=== PATIENT | female | born 1950 | race Caucasian/White ===

== ENCOUNTER 2020-12-22 09:45 | Inpatient (IN) | payer MEDICARE, MEDICAID ==
[2020-12-22 10:23] LABS: #Monocytes 1.2 10x3/uL (0.0-1.1); #Neutrophils 6.7 10x3/uL (1.5-8.4); %Basophils 0.4 % (0.0-2.0); %Eosinophils 0.4 % (0.0-6.0); %Lymphocytes 15.1 % (18.0-47.0); %Monocytes 12.2 % (0.0-10.0); %Neutrophils 71.1 % (40.0-75.0); Hemoglobin 10.3 g/dL (12.0-15.5); Mean Corpuscular Hemoglobin 26.7 pg (27.0-33.0); Mean Corpuscular Volume 88.9 fl (81.6-98.3); Platelet Count 199 10x3/uL (150-450); Red Blood Cell (RBC) Count 3.86 10x6/uL (3.90-5.03); White Blood Cell (WBC) Count 9.4 10x3/uL (3.5-10.5)
[2020-12-22 10:38] LABS: ALT (SGPT) 142 U/L (8-55); AST (SGOT) 226 U/L (5-34); Albumin 3.3 g/dL (3.4-4.8); Alkaline Phosphatase 112 U/L (40-110); Anion Gap 19 mmol/L (10-20); BUN (Urea Nitrogen) 51 mg/dL (9.8-20.1); Bilirubin, Total 0.5 mg/dL (0.2-1.2); Calc. Creatinine Clearance 0 mL/min (70-130); Calcium 8.3 mg/dL (7.8-10.44); Carbon Dioxide 27 mmol/L (23-31); Chloride 104 mmol/L (98-107); Globulin 3.3 g/dL (2.4-3.5); Glucose 73 mg/dL (80-115); Potassium 5.4 mmol/L (3.5-5.1); Protein, Total 6.6 g/dL (5.8-8.1); Sodium 145 mmol/L (136-145)
[2020-12-22] MEDS ORDERED: Nitroglycerin 2% Ointment 1 INCH/1 GM Packet ONE (10:55)
[2020-12-22] MEDS ORDERED: Furosemide 40 MG/4 ML VIAL ONE (10:55)
[2020-12-22 11:18] LABS: CKMB 9.6 ng/mL (0-6.6)
[2020-12-22] MEDS ORDERED: Enoxaparin Sodium 100 MG/ML SYRINGE ONE (11:32)
[2020-12-22 13:13] LABS: SARS-CoV-2 NAA Rapid Test Not Detected (NotDetected)
[2020-12-22] MEDS ORDERED: Ondansetron PF 4 MG/2 ML Vial IVP PRN (14:08)
[2020-12-22] MEDS ORDERED: Ondansetron ODT 4 MG TAB PO PRN (14:08)
[2020-12-22] MEDS ORDERED: Nitroglycerin 0.4 MG TAB (25 Tab Bottle) SL PRN (14:08)
[2020-12-22] MEDS ORDERED: Clopidogrel Bisulfate 300 MG TAB PO SCH (14:15)
[2020-12-22] MEDS ORDERED: Dextrose 50% Abboject 50 ML SYRINGE SLOW IVP PRN (14:50)
[2020-12-22] MEDS ORDERED: Dextrose 5% in Water 1,000 ML IV PRN (14:50)
[2020-12-22] MEDS ORDERED: Labetalol HCl 100 MG/20 ML VIAL SLOW IVP PRN (14:51)
[2020-12-22] MEDS: Morphine 2 MG/ML VIAL SLOW IVP PRN (16:25)
[2020-12-22] MEDS: Carvedilol 25 MG TAB PO SCH (16:25)
[2020-12-22 16:45] LABS: Troponin I 4.855 ng/mL (< 0.028)
[2020-12-22] MEDS: traMADol HCl 50 MG TAB PO PRN (19:00)
[2020-12-22] MEDS: Mometasone/Formoterol 200/5 60 PUFF INH SCH (19:20)
[2020-12-22] MEDS: Rosuvastatin 20 MG TAB PO SCH (21:35)
[2020-12-22] MEDS: Nitroglycerin 2% Ointment 1 INCH/1 GM Packet TOP SCH (22:00)
[2020-12-23 06:26] LABS: Anion Gap 17 mmol/L (10-20); BUN (Urea Nitrogen) 56 mg/dL (9.8-20.1); Calc. Creatinine Clearance 0 mL/min (70-130); Calcium 8.2 mg/dL (7.8-10.44); Carbon Dioxide 27 mmol/L (23-31); Cardiac Risk 5.6 (Less than 4.5); Chloride 105 mmol/L (98-107); Cholesterol 179 mg/dl (< 200 Desired); Glucose 93 mg/dL (80-115); HDL Cholesterol 32 mg/dL (>60 Neg Risk); LDL Cholesterol, Calculated 119 mg/dL; Potassium 5.3 mmol/L (3.5-5.1); Sodium 144 mmol/L (136-145); Triglycerides 140 mg/dL (Less than 150)
[2020-12-23] MEDS: Nitroglycerin 2% Ointment 1 INCH/1 GM Packet TOP SCH ×3 (06:53→21:04)
[2020-12-23 06:56] LABS: Platelet Count 140 10x3/uL (150-450)
[2020-12-23 06:57] LABS: #Basophils 0.1 10x3/uL (0.0-0.2); #Eosinphils 0.2 10x3/uL (0.0-0.5); #Monocytes 0.9 10x3/uL (0.0-1.1); #Neutrophils 4.5 10x3/uL (1.5-8.4); %Basophils 0.7 % (0.0-2.0); %Eosinophils 2.9 % (0.0-6.0); %Lymphocytes 15.9 % (18.0-47.0); %Monocytes 12.9 % (0.0-10.0); %Neutrophils 66.6 % (40.0-75.0); Hemoglobin 9.3 g/dL (12.0-15.5); Mean Corpuscular HGB CONC 29.5 g/dL (32.0-36.0); Mean Corpuscular Hemoglobin 26.3 pg (27.0-33.0); Mean Corpuscular Volume 89.2 fl (81.6-98.3); RBC Distribution Width 17.9 % (11.5-14.5); Red Blood Cell (RBC) Count 3.53 10x6/uL (3.90-5.03); White Blood Cell (WBC) Count 6.8 10x3/uL (3.5-10.5)
[2020-12-23 07:41] LABS: Platelet Morphology Comment Appears Adequate; RBC Morphology Normal
[2020-12-23] MEDS: Mometasone/Formoterol 200/5 60 PUFF INH SCH ×2 (08:08→19:20)
[2020-12-23] MEDS: Furosemide 40 MG/4 ML VIAL SLOW IVP SCH (08:12)
[2020-12-23] MEDS: Aspirin 81 mg Enteric Coated Tablet PO SCH (08:12)
[2020-12-23] MEDS: Carvedilol 25 MG TAB PO SCH ×2 (08:12→18:00)
[2020-12-23] MEDS: Clopidogrel Bisulfate 75 MG TAB PO SCH (08:12)
[2020-12-23] MEDS: Morphine 2 MG/ML VIAL SLOW IVP PRN ×2 (08:13→12:00)
[2020-12-23] MEDS: Enoxaparin Sodium 30 MG/0.3 ML SYRINGE SC SCH (08:15)
[2020-12-23] MEDS ORDERED: Lisinopril 2.5 MG TAB PO SCH (09:00)
[2020-12-23 11:26] LABS: Hemoglobin A1c 7.5 % (4.0-6.0)
[2020-12-23 12:47] VITALS: BMI 40.2
[2020-12-23] MEDS: traMADol HCl 50 MG TAB PO PRN (12:47)
[2020-12-23] MEDS: Rosuvastatin 20 MG TAB PO SCH (21:04)
[2020-12-23] MEDS: HumaLOG 300 UNITS/3 ML VIAL SC PRN (22:01)
[2020-12-24] MEDS: traMADol HCl 50 MG TAB PO PRN ×3 (00:43→18:03)
[2020-12-24 05:12] LABS: #Basophils 0.1 10x3/uL (0.0-0.2); #Eosinphils 0.3 10x3/uL (0.0-0.5); #Monocytes 0.9 10x3/uL (0.0-1.1); #Neutrophils 3.8 10x3/uL (1.5-8.4); %Basophils 0.8 % (0.0-2.0); %Eosinophils 5.5 % (0.0-6.0); %Lymphocytes 15.4 % (18.0-47.0); %Neutrophils 62.6 % (40.0-75.0); Hemoglobin 9.6 g/dL (12.0-15.5); Mean Corpuscular Hemoglobin 26.5 pg (27.0-33.0); Mean Corpuscular Volume 91.4 fl (81.6-98.3); Mean Platelet Volume 13.2 fl (7.4-10.4); Platelet Count 158 10x3/uL (150-450); RBC Distribution Width 17.7 % (11.5-14.5); Red Blood Cell (RBC) Count 3.62 10x6/uL (3.90-5.03)
[2020-12-24 05:22] LABS: ALT (SGPT) 219 U/L (8-55); AST (SGOT) 182 U/L (5-34); Albumin 2.9 g/dL (3.4-4.8); Alkaline Phosphatase 94 U/L (40-110); Anion Gap 17 mmol/L (10-20); BUN (Urea Nitrogen) 61 mg/dL (9.8-20.1); Bilirubin, Total 0.3 mg/dL (0.2-1.2); Calc. Creatinine Clearance 21 mL/min (70-130); Calcium 8.2 mg/dL (7.8-10.44); Carbon Dioxide 29 mmol/L (23-31); Chloride 102 mmol/L (98-107); Globulin 3.5 g/dL (2.4-3.5); Glucose 115 mg/dL (80-115); Potassium 4.9 mmol/L (3.5-5.1); Protein, Total 6.4 g/dL (5.8-8.1); Sodium 143 mmol/L (136-145)
[2020-12-24 05:56] LABS: Platelet Morphology Comment Appears Adequate
[2020-12-24 05:57] LABS: Anisocytosis SLIGHT = 6-15 cells (100X) (0-5/hpf)
[2020-12-24] MEDS: Nitroglycerin 2% Ointment 1 INCH/1 GM Packet TOP SCH ×3 (06:12→21:06)
[2020-12-24] MEDS: Mometasone/Formoterol 200/5 60 PUFF INH SCH ×2 (06:43→19:22)
[2020-12-24] MEDS: Carvedilol 25 MG TAB PO SCH ×2 (08:21→17:30)
[2020-12-24] MEDS: Aspirin 81 mg Enteric Coated Tablet PO SCH (08:21)
[2020-12-24] MEDS: Furosemide 40 MG/4 ML VIAL SLOW IVP SCH (08:21)
[2020-12-24] MEDS: Clopidogrel Bisulfate 75 MG TAB PO SCH (08:21)
[2020-12-24] MEDS: Enoxaparin Sodium 30 MG/0.3 ML SYRINGE SC SCH (08:21)
[2020-12-24] MEDS: diphenhydrAMINE 25 MG CAP PO PRN ×2 (08:21→18:03)
[2020-12-24] MEDS: HumaLOG 300 UNITS/3 ML VIAL SC PRN (18:08)
[2020-12-24] MEDS: Acetaminophen 325 MG TAB PO PRN (19:29)
[2020-12-24] MEDS: Rosuvastatin 20 MG TAB PO SCH (19:29)
[2020-12-25] MEDS: traMADol HCl 50 MG TAB PO PRN ×3 (02:00→17:35)
[2020-12-25 05:32] LABS: Anion Gap 16 mmol/L (10-20); BUN (Urea Nitrogen) 68 mg/dL (9.8-20.1); Calc. Creatinine Clearance 19 mL/min (70-130); Calcium 8.1 mg/dL (7.8-10.44); Carbon Dioxide 29 mmol/L (23-31); Chloride 100 mmol/L (98-107); Glucose 201 mg/dL (80-115); Magnesium 2.3 mg/dL (1.6-2.6); Potassium 5.4 mmol/L (3.5-5.1); Sodium 140 mmol/L (136-145)
[2020-12-25 05:55] LABS: Hemoglobin 11.3 g/dL (12.0-15.5); Mean Corpuscular HGB CONC 28.9 g/dL (32.0-36.0); Mean Corpuscular Hemoglobin 26.5 pg (27.0-33.0); Mean Corpuscular Volume 91.8 fl (81.6-98.3); Mean Platelet Volume 12.9 fl (7.4-10.4); Platelet Count 121 10x3/uL (150-450); RBC Distribution Width 18.1 % (11.5-14.5); Red Blood Cell (RBC) Count 4.26 10x6/uL (3.90-5.03); White Blood Cell (WBC) Count 5.9 10x3/uL (3.5-10.5)
[2020-12-25] MEDS: Nitroglycerin 2% Ointment 1 INCH/1 GM Packet TOP SCH (06:21)
[2020-12-25] MEDS: Mometasone/Formoterol 200/5 60 PUFF INH SCH ×2 (06:49→19:30)
[2020-12-25 06:50] LABS: #Eosinphils 0.3 10x3/uL (0.0-0.5); #Monocytes 0.8 10x3/uL (0.0-1.1); #Neutrophils 3.9 10x3/uL (1.5-8.4); %Basophils 0.5 % (0.0-2.0); %Eosinophils 5.1 % (0.0-6.0); %Lymphocytes 14.3 % (18.0-47.0); %Monocytes 12.8 % (0.0-10.0); %Neutrophils 66.8 % (40.0-75.0)
[2020-12-25 06:52] LABS: Giant Platelets SLIGHT; Large Platelets SLIGHT; Platelet Morphology Comment Appears Adequate
[2020-12-25 06:53] LABS: Anisocytosis SLIGHT = 6-15 cells (100X) (0-5/hpf); Basophilic Stippling SLIGHT = 1-2 cells (100X) (None Seen); Macrocytosis SLIGHT = 6-15 cells (100X) (0-5/hpf); Microcytosis SLIGHT = 6-15 cells (100X) (0-5/hpf); Polychromasia SLIGHT = 2-3 cells (100X) (0-2/hpf)
[2020-12-25] MEDS: HumaLOG 300 UNITS/3 ML VIAL SC PRN ×2 (07:44→17:38)
[2020-12-25] MEDS: Carvedilol 25 MG TAB PO SCH ×2 (10:05→17:35)
[2020-12-25] MEDS: Clopidogrel Bisulfate 75 MG TAB PO SCH (10:05)
[2020-12-25] MEDS: Aspirin 81 mg Enteric Coated Tablet PO SCH (10:05)
[2020-12-25] MEDS: Enoxaparin Sodium 30 MG/0.3 ML SYRINGE SC SCH (10:05)
[2020-12-25] MEDS: diphenhydrAMINE 25 MG CAP PO PRN (14:25)
[2020-12-25] MEDS: Acetaminophen 325 MG TAB PO PRN (14:26)
[2020-12-25 15:22] LABS: Anion Gap 18 mmol/L (10-20); BUN (Urea Nitrogen) 70 mg/dL (9.8-20.1); Calc. Creatinine Clearance 18 mL/min (70-130); Calcium 8.2 mg/dL (7.8-10.44); Carbon Dioxide 30 mmol/L (23-31); Chloride 99 mmol/L (98-107); Glucose 192 mg/dL (80-115); Potassium 5.6 mmol/L (3.5-5.1); Sodium 141 mmol/L (136-145)
[2020-12-25] MEDS: Rosuvastatin 20 MG TAB PO SCH (20:08)
[2020-12-26] MEDS: diphenhydrAMINE 25 MG CAP PO PRN ×3 (00:40→21:32)
[2020-12-26] MEDS: traMADol HCl 50 MG TAB PO PRN ×3 (00:41→17:09)
[2020-12-26 06:28] LABS: #Eosinphils 0.3 10x3/uL (0.0-0.5); #Monocytes 0.9 10x3/uL (0.0-1.1); #Neutrophils 3.9 10x3/uL (1.5-8.4); %Basophils 0.5 % (0.0-2.0); %Eosinophils 5.4 % (0.0-6.0); %Lymphocytes 15.1 % (18.0-47.0); %Neutrophils 64.7 % (40.0-75.0); Hemoglobin 9.3 g/dL (12.0-15.5); Mean Corpuscular HGB CONC 29.1 g/dL (32.0-36.0); Mean Corpuscular Hemoglobin 26.5 pg (27.0-33.0); Mean Corpuscular Volume 91.2 fl (81.6-98.3); Mean Platelet Volume 12.8 fl (7.4-10.4); Platelet Count 137 10x3/uL (150-450); RBC Distribution Width 18.1 % (11.5-14.5); Red Blood Cell (RBC) Count 3.51 10x6/uL (3.90-5.03); White Blood Cell (WBC) Count 6.1 10x3/uL (3.5-10.5)
[2020-12-26 06:39] LABS: ALT (SGPT) 143 U/L (8-55); AST (SGOT) 56 U/L (5-34); Albumin 2.8 g/dL (3.4-4.8); Alkaline Phosphatase 86 U/L (40-110); Anion Gap 17 mmol/L (10-20); BUN (Urea Nitrogen) 74 mg/dL (9.8-20.1); Bilirubin, Total 0.3 mg/dL (0.2-1.2); Calc. Creatinine Clearance 17 mL/min (70-130); Calcium 8.3 mg/dL (7.8-10.44); Carbon Dioxide 28 mmol/L (23-31); Chloride 100 mmol/L (98-107); Globulin 3.4 g/dL (2.4-3.5); Glucose 151 mg/dL (80-115); Magnesium 2.4 mg/dL (1.6-2.6); Potassium 5.2 mmol/L (3.5-5.1); Protein, Total 6.2 g/dL (5.8-8.1); Sodium 140 mmol/L (136-145)
[2020-12-26 06:46] LABS: Basophilic Stippling SLIGHT = 1-2 cells (100X) (None Seen)
[2020-12-26 06:47] LABS: Large Platelets SLIGHT
[2020-12-26] MEDS: Mometasone/Formoterol 200/5 60 PUFF INH SCH ×2 (07:02→19:52)
[2020-12-26] MEDS: Aspirin 81 mg Enteric Coated Tablet PO SCH (08:24)
[2020-12-26] MEDS: Clopidogrel Bisulfate 75 MG TAB PO SCH (08:24)
[2020-12-26] MEDS: Enoxaparin Sodium 30 MG/0.3 ML SYRINGE SC SCH (08:24)
[2020-12-26] MEDS: Nystatin Powder 15 GM BOT TOP SCH ×3 (08:24→21:35)
[2020-12-26] MEDS: Carvedilol 25 MG TAB PO SCH ×2 (08:24→17:34)
[2020-12-26] MEDS: Acetaminophen 325 MG TAB PO PRN ×3 (10:53→21:32)
[2020-12-26] MEDS: HumaLOG 300 UNITS/3 ML VIAL SC PRN ×3 (12:24→21:36)
[2020-12-26 13:47] LABS: Anion Gap 16 mmol/L (10-20); BUN (Urea Nitrogen) 75 mg/dL (9.8-20.1); Calc. Creatinine Clearance 17 mL/min (70-130); Calcium 8.2 mg/dL (7.8-10.44); Carbon Dioxide 30 mmol/L (23-31); Chloride 99 mmol/L (98-107); Glucose 199 mg/dL (80-115); Potassium 5.2 mmol/L (3.5-5.1); Sodium 140 mmol/L (136-145)
[2020-12-26] MEDS: Rosuvastatin 20 MG TAB PO SCH (21:32)
[2020-12-27 05:25] LABS: #Eosinphils 0.4 10x3/uL (0.0-0.5); #Monocytes 0.8 10x3/uL (0.0-1.1); %Basophils 0.7 % (0.0-2.0); %Eosinophils 6.1 % (0.0-6.0); %Lymphocytes 14.1 % (18.0-47.0); %Monocytes 13.8 % (0.0-10.0); Mean Corpuscular HGB CONC 29.2 g/dL (32.0-36.0); Mean Corpuscular Hemoglobin 26.5 pg (27.0-33.0); Mean Corpuscular Volume 90.9 fl (81.6-98.3); Mean Platelet Volume 12.9 fl (7.4-10.4); Platelet Count 136 10x3/uL (150-450); RBC Distribution Width 18.2 % (11.5-14.5); Red Blood Cell (RBC) Count 3.39 10x6/uL (3.90-5.03); White Blood Cell (WBC) Count 6.1 10x3/uL (3.5-10.5)
[2020-12-27 05:42] LABS: Hypochromia SLIGHT = 6-15 cells (100X) (0-5/hpf)
[2020-12-27 06:08] LABS: ALT (SGPT) 103 U/L (8-55); AST (SGOT) 30 U/L (5-34); Albumin 2.9 g/dL (3.4-4.8); Alkaline Phosphatase 83 U/L (40-110); Anion Gap 18 mmol/L (10-20); BUN (Urea Nitrogen) 75 mg/dL (9.8-20.1); Bilirubin, Total 0.3 mg/dL (0.2-1.2); Calc. Creatinine Clearance 18 mL/min (70-130); Calcium 8.3 mg/dL (7.8-10.44); Carbon Dioxide 29 mmol/L (23-31); Chloride 100 mmol/L (98-107); Globulin 3.3 g/dL (2.4-3.5); Glucose 127 mg/dL (80-115); Potassium 4.7 mmol/L (3.5-5.1); Protein, Total 6.2 g/dL (5.8-8.1); Sodium 142 mmol/L (136-145)
[2020-12-27] MEDS: Mometasone/Formoterol 200/5 60 PUFF INH SCH ×2 (07:18→19:32)
[2020-12-27] MEDS: Aspirin 81 mg Enteric Coated Tablet PO SCH (07:58)
[2020-12-27] MEDS: Enoxaparin Sodium 30 MG/0.3 ML SYRINGE SC SCH (07:58)
[2020-12-27] MEDS: Clopidogrel Bisulfate 75 MG TAB PO SCH (07:58)
[2020-12-27] MEDS: Carvedilol 25 MG TAB PO SCH ×2 (07:58→17:35)
[2020-12-27] MEDS: traMADol HCl 50 MG TAB PO PRN ×2 (07:58→19:47)
[2020-12-27] MEDS: Nystatin Powder 15 GM BOT TOP SCH ×3 (07:59→20:30)
[2020-12-27] MEDS: diphenhydrAMINE 25 MG CAP PO PRN (20:40)
[2020-12-27] MEDS: Rosuvastatin 20 MG TAB PO SCH (20:40)
[2020-12-28] MEDS: Morphine 2 MG/ML VIAL SLOW IVP PRN (01:15)
[2020-12-28] MEDS: diphenhydrAMINE 50 MG/ML VIAL IVP SCH (01:48)
[2020-12-28 04:37] LABS: #Eosinphils 0.3 10x3/uL (0.0-0.5); #Monocytes 0.7 10x3/uL (0.0-1.1); %Basophils 0.5 % (0.0-2.0); %Eosinophils 5.5 % (0.0-6.0); %Lymphocytes 15.3 % (18.0-47.0); %Monocytes 11.8 % (0.0-10.0); %Neutrophils 66.4 % (40.0-75.0); Hemoglobin 8.9 g/dL (12.0-15.5); Mean Corpuscular HGB CONC 29.5 g/dL (32.0-36.0); Mean Corpuscular Hemoglobin 26.6 pg (27.0-33.0); Mean Corpuscular Volume 90.1 fl (81.6-98.3); Mean Platelet Volume 12.4 fl (7.4-10.4); Platelet Count 124 10x3/uL (150-450); RBC Distribution Width 18.4 % (11.5-14.5); Red Blood Cell (RBC) Count 3.35 10x6/uL (3.90-5.03)
[2020-12-28 04:55] LABS: ALT (SGPT) 74 U/L (8-55); AST (SGOT) 20 U/L (5-34); Albumin 2.8 g/dL (3.4-4.8); Alkaline Phosphatase 82 U/L (40-110); Anion Gap 19 mmol/L (10-20); BUN (Urea Nitrogen) 73 mg/dL (9.8-20.1); Bilirubin, Total 0.4 mg/dL (0.2-1.2); Calc. Creatinine Clearance 19 mL/min (70-130); Calcium 8.2 mg/dL (7.8-10.44); Carbon Dioxide 27 mmol/L (23-31); Chloride 101 mmol/L (98-107); Globulin 3.4 g/dL (2.4-3.5); Glucose 145 mg/dL (80-115); Magnesium 2.5 mg/dL (1.6-2.6); Potassium 4.9 mmol/L (3.5-5.1); Protein, Total 6.2 g/dL (5.8-8.1); Sodium 142 mmol/L (136-145)
[2020-12-28] MEDS: Mometasone/Formoterol 200/5 60 PUFF INH SCH ×2 (08:07→19:26)
[2020-12-28] MEDS: Carvedilol 25 MG TAB PO SCH ×2 (09:38→18:12)
[2020-12-28] MEDS: Enoxaparin Sodium 30 MG/0.3 ML SYRINGE SC SCH (09:38)
[2020-12-28] MEDS: Aspirin 81 mg Enteric Coated Tablet PO SCH (09:38)
[2020-12-28] MEDS: Clopidogrel Bisulfate 75 MG TAB PO SCH (09:38)
[2020-12-28] MEDS: Nystatin Powder 15 GM BOT TOP SCH ×3 (09:39→21:00)
[2020-12-28] MEDS: traMADol HCl 50 MG TAB PO PRN (21:59)
[2020-12-28] MEDS: Rosuvastatin 20 MG TAB PO SCH (21:59)
[2020-12-28] MEDS: HumaLOG 300 UNITS/3 ML VIAL SC PRN (22:00)
[2020-12-29] MEDS: Senokot S 8.6-50 MG TAB PO PRN ×2 (02:15→14:23)
[2020-12-29 06:31] LABS: Iron 74 ug/dL (50-170); Iron Binding Capacity, Total 290 mcg/dL (265-497)
[2020-12-29] MEDS: Mometasone/Formoterol 200/5 60 PUFF INH SCH ×2 (07:46→19:32)
[2020-12-29] MEDS: Aspirin 81 mg Enteric Coated Tablet PO SCH (09:50)
[2020-12-29] MEDS: Acetaminophen 325 MG TAB PO PRN (09:50)
[2020-12-29] MEDS: Enoxaparin Sodium 30 MG/0.3 ML SYRINGE SC SCH (09:50)
[2020-12-29] MEDS: Clopidogrel Bisulfate 75 MG TAB PO SCH (09:50)
[2020-12-29] MEDS: Carvedilol 25 MG TAB PO SCH ×2 (09:50→17:06)
[2020-12-29] MEDS: Nystatin Powder 15 GM BOT TOP SCH ×3 (10:16→22:05)
[2020-12-29] MEDS: Morphine 2 MG/ML VIAL SLOW IVP PRN (11:01)
[2020-12-29] MEDS: traMADol HCl 50 MG TAB PO PRN ×2 (11:48→22:04)
[2020-12-29 13:25] LABS: Anion Gap 15 mmol/L (10-20)
[2020-12-29 13:33] LABS: BUN (Urea Nitrogen) 77 mg/dL (9.8-20.1); Calc. Creatinine Clearance 19 mL/min (70-130); Calcium 8.4 mg/dL (7.8-10.44); Carbon Dioxide 32 mmol/L (23-31); Chloride 99 mmol/L (98-107); Glucose 238 mg/dL (80-115); Potassium 4.8 mmol/L (3.5-5.1); Sodium 141 mmol/L (136-145)
[2020-12-29 13:34] LABS: Troponin I 0.354 ng/mL (< 0.028)
[2020-12-29] MEDS ORDERED: Morphine IR 10 MG/5 ML UDCUP PO SCH (14:00)
[2020-12-29] MEDS: HumaLOG 300 UNITS/3 ML VIAL SC PRN ×2 (14:22→17:11)
[2020-12-29 14:42] LABS: Phosphorus 5.3 mg/dL (2.3-4.7)
[2020-12-29] MEDS: Rosuvastatin 20 MG TAB PO SCH (22:05)
[2020-12-30] MEDS ORDERED: HYDROcodone/Acetaminophen 5/325 mg Tablet PO SCH ×2 (02:15→02:45)
[2020-12-30 05:29] LABS: Albumin 2.9 g/dL (3.4-4.8); Anion Gap 16 mmol/L (10-20); BUN (Urea Nitrogen) 75 mg/dL (9.8-20.1); BUN/Creatinine Ratio 17.44; Calc. Creatinine Clearance 19 mL/min (70-130); Calcium 8.7 mg/dL (7.8-10.44); Carbon Dioxide 31 mmol/L (23-31); Chloride 100 mmol/L (98-107); Glucose 122 mg/dL (80-115); Phosphorus 5.1 mg/dL (2.3-4.7); Potassium 4.8 mmol/L (3.5-5.1); Sodium 142 mmol/L (136-145)
[2020-12-30] MEDS: Carvedilol 25 MG TAB PO SCH ×2 (09:45→18:14)
[2020-12-30] MEDS: traMADol HCl 50 MG TAB PO PRN ×2 (09:45→18:08)
[2020-12-30] MEDS: Enoxaparin Sodium 30 MG/0.3 ML SYRINGE SC SCH (09:46)
[2020-12-30] MEDS: Aspirin 81 mg Enteric Coated Tablet PO SCH (09:46)
[2020-12-30] MEDS: Clopidogrel Bisulfate 75 MG TAB PO SCH (09:46)
[2020-12-30] MEDS: Mometasone/Formoterol 200/5 60 PUFF INH SCH ×2 (10:02→21:13)
[2020-12-30] MEDS: Nystatin Powder 15 GM BOT TOP SCH ×3 (10:26→21:13)
[2020-12-30] MEDS ORDERED: Calcium Carbonate 500 MG ChewTAB PO PRN (12:00)
[2020-12-30] MEDS: diphenhydrAMINE 25 MG CAP PO PRN ×2 (12:59→18:14)
[2020-12-30] MEDS: Senokot S 8.6-50 MG TAB PO PRN (12:59)
[2020-12-30] MEDS: Rosuvastatin 20 MG TAB PO SCH (21:13)
[2020-12-31] MEDS: diphenhydrAMINE 25 MG CAP PO PRN ×3 (00:40→12:12)
[2020-12-31] MEDS: traMADol HCl 50 MG TAB PO PRN ×4 (00:45→21:39)
[2020-12-31 05:40] LABS: Albumin 2.8 g/dL (3.4-4.8); Anion Gap 16 mmol/L (10-20); BUN (Urea Nitrogen) 76 mg/dL (9.8-20.1); BUN/Creatinine Ratio 17.97; Calc. Creatinine Clearance 19 mL/min (70-130); Calcium 8.9 mg/dL (7.8-10.44); Carbon Dioxide 33 mmol/L (23-31); Chloride 100 mmol/L (98-107); Glucose 114 mg/dL (80-115); Phosphorus 5.1 mg/dL (2.3-4.7); Potassium 5.2 mmol/L (3.5-5.1); Sodium 144 mmol/L (136-145)
[2020-12-31] MEDS: Clopidogrel Bisulfate 75 MG TAB PO SCH (09:36)
[2020-12-31] MEDS: Aspirin 81 mg Enteric Coated Tablet PO SCH (09:36)
[2020-12-31] MEDS: Enoxaparin Sodium 30 MG/0.3 ML SYRINGE SC SCH (09:36)
[2020-12-31] MEDS: Carvedilol 25 MG TAB PO SCH ×2 (09:36→16:28)
[2020-12-31] MEDS: Nystatin Powder 15 GM BOT TOP SCH ×3 (09:38→21:39)
[2020-12-31] MEDS ORDERED: Furosemide 40 MG/4 ML VIAL SLOW IVP SCH (09:45)
[2020-12-31] MEDS: Mometasone/Formoterol 200/5 60 PUFF INH SCH ×2 (11:52→19:50)
[2020-12-31] MEDS ORDERED: Furosemide 40 MG TAB PO SCH (13:45)
[2020-12-31] MEDS: Morphine 2 MG/ML VIAL SLOW IVP PRN ×2 (16:31→23:23)
[2020-12-31] MEDS: Rosuvastatin 20 MG TAB PO SCH (21:39)
[2021-01-01] MEDS: Mometasone/Formoterol 200/5 60 PUFF INH SCH ×2 (07:26→19:20)
[2021-01-01 08:21] LABS: #Eosinphils 0.3 10x3/uL (0.0-0.5); #Monocytes 0.8 10x3/uL (0.0-1.1); #Neutrophils 4.3 10x3/uL (1.5-8.4); %Basophils 0.5 % (0.0-2.0); %Eosinophils 4.3 % (0.0-6.0); %Lymphocytes 13.4 % (18.0-47.0); %Monocytes 13.1 % (0.0-10.0); %Neutrophils 68.2 % (40.0-75.0); Mean Corpuscular HGB CONC 28.6 g/dL (32.0-36.0); Mean Corpuscular Hemoglobin 26.3 pg (27.0-33.0); Mean Corpuscular Volume 92.1 fl (81.6-98.3); Platelet Count 137 10x3/uL (150-450); Red Blood Cell (RBC) Count 3.42 10x6/uL (3.90-5.03); White Blood Cell (WBC) Count 6.3 10x3/uL (3.5-10.5)
[2021-01-01 08:35] LABS: Anion Gap 19 mmol/L (10-20); BUN (Urea Nitrogen) 77 mg/dL (9.8-20.1); Calc. Creatinine Clearance 20 mL/min (70-130); Carbon Dioxide 28 mmol/L (23-31); Chloride 101 mmol/L (98-107); Glucose 109 mg/dL (80-115); Potassium 4.9 mmol/L (3.5-5.1); Sodium 143 mmol/L (136-145)
[2021-01-01 09:14] LABS: Basophilic Stippling SLIGHT = 1-2 cells (100X) (None Seen); Hypochromia SLIGHT = 6-15 cells (100X) (0-5/hpf)
[2021-01-01 09:15] LABS: Platelet Morphology Comment Appears Adequate; Stomatocytes SLIGHT = 2-5 cells (100X) (0-1/hpf)
[2021-01-01] MEDS: traMADol HCl 50 MG TAB PO PRN ×2 (10:39→16:35)
[2021-01-01] MEDS: Clopidogrel Bisulfate 75 MG TAB PO SCH (10:39)
[2021-01-01] MEDS: Carvedilol 25 MG TAB PO SCH ×2 (10:39→16:36)
[2021-01-01] MEDS: Aspirin 81 mg Enteric Coated Tablet PO SCH (10:39)
[2021-01-01] MEDS: Enoxaparin Sodium 30 MG/0.3 ML SYRINGE SC SCH (10:39)
[2021-01-01] MEDS: Nystatin Powder 15 GM BOT TOP SCH ×3 (10:41→22:00)
[2021-01-01] MEDS: diphenhydrAMINE 25 MG CAP PO PRN ×2 (10:41→21:27)
[2021-01-01] MEDS: Rosuvastatin 20 MG TAB PO SCH (21:27)
[2021-01-01] MEDS: Acetaminophen 325 MG TAB PO PRN (22:30)
[2021-01-02] MEDS: traMADol HCl 50 MG TAB PO PRN ×4 (00:21→21:59)
[2021-01-02] MEDS: diphenhydrAMINE 25 MG CAP PO PRN (03:25)
[2021-01-02 05:13] LABS: #Eosinphils 0.2 10x3/uL (0.0-0.5); #Monocytes 0.8 10x3/uL (0.0-1.1); #Neutrophils 4.5 10x3/uL (1.5-8.4); %Basophils 0.6 % (0.0-2.0); %Eosinophils 2.7 % (0.0-6.0); %Lymphocytes 12.8 % (18.0-47.0); %Monocytes 12.3 % (0.0-10.0); Mean Corpuscular HGB CONC 28.6 g/dL (32.0-36.0); Mean Corpuscular Hemoglobin 26.2 pg (27.0-33.0); Mean Corpuscular Volume 91.8 fl (81.6-98.3); Mean Platelet Volume 12.7 fl (7.4-10.4); Platelet Count 141 10x3/uL (150-450); RBC Distribution Width 17.9 % (11.5-14.5); Red Blood Cell (RBC) Count 3.43 10x6/uL (3.90-5.03); White Blood Cell (WBC) Count 6.4 10x3/uL (3.5-10.5)
[2021-01-02 05:26] LABS: Anion Gap 18 mmol/L (10-20); BUN (Urea Nitrogen) 76 mg/dL (9.8-20.1); Calc. Creatinine Clearance 20 mL/min (70-130); Calcium 8.9 mg/dL (7.8-10.44); Carbon Dioxide 29 mmol/L (23-31); Chloride 101 mmol/L (98-107); Glucose 137 mg/dL (80-115); Potassium 5.2 mmol/L (3.5-5.1); Sodium 143 mmol/L (136-145)
[2021-01-02] MEDS: Mometasone/Formoterol 200/5 60 PUFF INH SCH ×2 (07:41→19:50)
[2021-01-02] MEDS ORDERED: Magnesium Citrate 300 ML BOT PO SCH (08:45)
[2021-01-02] MEDS ORDERED: Furosemide 40 MG/4 ML VIAL SLOW IVP SCH (09:00)
[2021-01-02] MEDS: Carvedilol 25 MG TAB PO SCH ×2 (09:22→14:46)
[2021-01-02] MEDS: Enoxaparin Sodium 30 MG/0.3 ML SYRINGE SC SCH (09:22)
[2021-01-02] MEDS: Aspirin 81 mg Enteric Coated Tablet PO SCH (09:22)
[2021-01-02] MEDS: Clopidogrel Bisulfate 75 MG TAB PO SCH (09:22)
[2021-01-02] MEDS: Furosemide 20 MG TAB PO SCH ×2 (09:23→14:46)
[2021-01-02] MEDS: Nystatin Powder 15 GM BOT TOP SCH ×3 (09:23→21:59)
[2021-01-02] MEDS: Rosuvastatin 20 MG TAB PO SCH (21:59)
[2021-01-03] MEDS: traMADol HCl 50 MG TAB PO PRN ×4 (03:20→23:31)
[2021-01-03] MEDS: Senokot S 8.6-50 MG TAB PO PRN ×2 (03:48→23:26)
[2021-01-03 05:40] LABS: #Eosinphils 0.3 10x3/uL (0.0-0.5); #Monocytes 0.9 10x3/uL (0.0-1.1); #Neutrophils 4.8 10x3/uL (1.5-8.4); %Basophils 0.6 % (0.0-2.0); %Lymphocytes 10.7 % (18.0-47.0); %Monocytes 12.9 % (0.0-10.0); %Neutrophils 70.5 % (40.0-75.0); Hemoglobin 8.7 g/dL (12.0-15.5); Mean Corpuscular HGB CONC 28.8 g/dL (32.0-36.0); Mean Corpuscular Hemoglobin 26.5 pg (27.0-33.0); Mean Corpuscular Volume 92.1 fl (81.6-98.3); Mean Platelet Volume 12.6 fl (7.4-10.4); Platelet Count 151 10x3/uL (150-450); RBC Distribution Width 17.8 % (11.5-14.5); Red Blood Cell (RBC) Count 3.28 10x6/uL (3.90-5.03); White Blood Cell (WBC) Count 6.8 10x3/uL (3.5-10.5)
[2021-01-03 05:48] LABS: Anion Gap 16 mmol/L (10-20); BUN (Urea Nitrogen) 72 mg/dL (9.8-20.1); Calc. Creatinine Clearance 21 mL/min (70-130); Calcium 8.9 mg/dL (7.8-10.44); Carbon Dioxide 35 mmol/L (23-31); Chloride 101 mmol/L (98-107); Glucose 107 mg/dL (80-115); Potassium 4.8 mmol/L (3.5-5.1); Sodium 147 mmol/L (136-145)
[2021-01-03] MEDS: Mometasone/Formoterol 200/5 60 PUFF INH SCH ×2 (07:27→19:10)
[2021-01-03] MEDS: Carvedilol 25 MG TAB PO SCH ×2 (08:48→15:55)
[2021-01-03] MEDS: Nystatin Powder 15 GM BOT TOP SCH ×3 (08:48→21:13)
[2021-01-03] MEDS: Clopidogrel Bisulfate 75 MG TAB PO SCH (08:48)
[2021-01-03] MEDS: Aspirin 81 mg Enteric Coated Tablet PO SCH (08:48)
[2021-01-03] MEDS: Enoxaparin Sodium 30 MG/0.3 ML SYRINGE SC SCH (08:48)
[2021-01-03] MEDS: Furosemide 20 MG TAB PO SCH ×2 (08:48→15:56)
[2021-01-03] MEDS: diphenhydrAMINE 25 MG CAP PO PRN ×2 (17:27→23:32)
[2021-01-03] MEDS: Rosuvastatin 20 MG TAB PO SCH (21:13)
[2021-01-04 04:45] LABS: #Eosinphils 0.3 10x3/uL (0.0-0.5); #Neutrophils 4.9 10x3/uL (1.5-8.4); %Basophils 0.6 % (0.0-2.0); %Eosinophils 4.3 % (0.0-6.0); %Lymphocytes 10.2 % (18.0-47.0); %Monocytes 13.7 % (0.0-10.0); %Neutrophils 70.8 % (40.0-75.0); Mean Corpuscular HGB CONC 28.8 g/dL (32.0-36.0); Mean Corpuscular Hemoglobin 26.8 pg (27.0-33.0); Mean Corpuscular Volume 92.9 fl (81.6-98.3); Mean Platelet Volume 12.7 fl (7.4-10.4); Platelet Count 159 10x3/uL (150-450); RBC Distribution Width 17.9 % (11.5-14.5); Red Blood Cell (RBC) Count 3.36 10x6/uL (3.90-5.03); White Blood Cell (WBC) Count 6.9 10x3/uL (3.5-10.5)
[2021-01-04 04:51] LABS: Anion Gap 13 mmol/L (10-20); BUN (Urea Nitrogen) 65 mg/dL (9.8-20.1); Calc. Creatinine Clearance 23 mL/min (70-130); Calcium 9.1 mg/dL (7.8-10.44); Carbon Dioxide 36 mmol/L (23-31); Chloride 100 mmol/L (98-107); Glucose 119 mg/dL (80-115); Sodium 145 mmol/L (136-145)
[2021-01-04] MEDS: Aspirin 81 mg Enteric Coated Tablet PO SCH (08:15)
[2021-01-04] MEDS: Enoxaparin Sodium 30 MG/0.3 ML SYRINGE SC SCH (08:15)
[2021-01-04] MEDS: Clopidogrel Bisulfate 75 MG TAB PO SCH (08:15)
[2021-01-04] MEDS: Carvedilol 25 MG TAB PO SCH (08:15)
[2021-01-04] MEDS: Furosemide 20 MG TAB PO SCH ×2 (08:15→14:29)
[2021-01-04] MEDS: Nystatin Powder 15 GM BOT TOP SCH ×2 (08:16→14:30)
[2021-01-04] MEDS: Mometasone/Formoterol 200/5 60 PUFF INH SCH (08:36)
[2021-01-04] MEDS ORDERED: Furosemide 40 MG/4 ML VIAL SLOW IVP SCH (09:00)
[2021-01-04] MEDS ORDERED: EPOETIN ALFA-EPBX (ESRD) 10,000 UNIT/ML VIAL SC SCH (09:00)
[2021-01-04 16:42] VITALS: BP 151/76; TEMP 97.4
== END 2021-01-04 16:57 | disposition home or self-care (01) | DRG 280 ==
LOC: CSHERS 09:45 → CSHTELE 14:18
PROVIDERS: ADMIT Family Medicine; ATTEND Internal Medicine
DX: I13.0 Hypertensive heart and chronic kidney disease with heart failure and stage 1 through stage 4 chronic kidney disease, or unspecified chronic kidney disease (principal); I21.4 Non-ST elevation (NSTEMI) myocardial infarction; I50.23 Acute on chronic systolic (congestive) heart failure; J96.21 Acute and chronic respiratory failure with hypoxia; N18.6 End stage renal disease; N17.9 Acute kidney failure, unspecified; Z68.42 Body mass index [BMI] 45.0-49.9, adult; Z20.822 Contact with and (suspected) exposure to COVID-19; E66.01 Morbid (severe) obesity due to excess calories; N18.30 Chronic kidney disease, stage 3 unspecified; E11.22 Type 2 diabetes mellitus with diabetic chronic kidney disease; E11.65 Type 2 diabetes mellitus with hyperglycemia; J44.9 Chronic obstructive pulmonary disease, unspecified; D63.1 Anemia in chronic kidney disease; E87.5 Hyperkalemia; I25.10 Atherosclerotic heart disease of native coronary artery without angina pectoris; E78.5 Hyperlipidemia, unspecified; R26.89 Other abnormalities of gait and mobility; Z79.891 Long term (current) use of opiate analgesic; Z79.52 Long term (current) use of systemic steroids; Z79.899 Other long term (current) drug therapy; Z91.041 Radiographic dye allergy status; Z99.81 Dependence on supplemental oxygen; Z90.49 Acquired absence of other specified parts of digestive tract; Z90.710 Acquired absence of both cervix and uterus; Z95.5 Presence of coronary angioplasty implant and graft; Z87.891 Personal history of nicotine dependence; Z66 Do not resuscitate; S80.821A Blister (nonthermal), right lower leg, initial encounter; Z79.51 Long term (current) use of inhaled steroids; E87.70 Fluid overload, unspecified
CPT/HCPCS: 0240U; 36415; 36416; 71045; 80048; 80053; 80061; 80069; 82553; 82728; 83036; 83540; 83550; 83605; 83735; 83880; 83970; 84100; 84484; 85025; 93005; 93306; 94760; 96372; 96374; J1200; J1650; J1815; J1940; J2270; J2405; Q0163; Q5105